=== PATIENT | male | born 1955 | race African-American/Black ===

== ENCOUNTER 2017-08-04 12:19 | Emergency (ER) | payer MEDICAID, OTHER ==
[~2017-08-04] VITALS: Ht 177.8 cm; Wt 70.0 kg
[~2017-08-04 12:19] MED LIST: APRI0.372 PO; ASPI81TA23 PO; CLON0.5T PO; FINA5TAB2 PO; HYDR-3583 PO; METH500T3 PO; PROT40TA PO; TRAM-492 PO
[2017-08-04 12:35] VITALS: BP 184/99; PULSE 66; RESP 16; TEMP 99; O2SAT 99
[2017-08-04 12:39] VITALS: O2SAT 100
[2017-08-04] MEDS ORDERED: SODIUM CHLOR 0.9% 1000 ML INJ 1,000 ML IV SCH (13:01)
[2017-08-04] MEDS ORDERED: KETOROLAC TROMETHAMINE 30 MG/ML (IVP) VIAL IVP ONE (13:15)
[2017-08-04] MEDS ORDERED: ONDANSETRON HCL 4 MG/2 ML VIAL IVP ONE (13:15)
[2017-08-04] MEDS ORDERED: MORPHINE SULFATE 4 MG/ML INJ IV PUSH ONE (13:15)
[2017-08-04] MEDS ORDERED: SODIUM CHLORIDE 0.9% FLUSH 10 ML FLUSH IV FLUSH PRN (13:15)
--- NOTE | 2017-08-04 13:20 | PD ---
HPI Chief Complaint: Flank/Kidney Pain Time Seen by Provider: 12:42 Travel History International Travel<30 days: No Contact w/Intl Traveler<30days: No Traveled to known affect area: No History of Present Illness HPI The patient is a 62-year-old male who presents to the emergency department for right flank pain. The patient was seen at [facility] several days ago diagnosed with a 4 mm kidney stone. The patient has a follow-up appointment with Dr. Ly today at 4 PM. However, his pain returned. The pain is located in the right mid back and radiates the right flank and right lower quadrant. Intermittent, sharp, with mild hematuria, symptoms are moderate to severe. The patient did receive morphine by EMS prior to arrival, however, patient continues to have pain. The patient states he was discharged home with Tucker and Flomax for his symptoms, however, they have persisted. He denies any fever, chills, or sweats. He does complain of mild nausea secondary to the pain. He denies any previous history of kidney stones. PFSH Past Medical History Anxiety: Yes Depression: Yes Diminished Hearing: No Fibromyalgia: Yes Kidney Stones: Yes Past Surgical History Other Surgery: Yes (vasectomy, knee ) Social History Alcohol Use: No (OCC) Tobacco Use: No Substance Use: No (DRINKS VODKA DAILY (denies)) Allergies-Medications (Allergen,Severity, Reaction): Coded Allergies: Tricyclic Compounds (Verified Allergy, Severe, 08/04/17) amitriptyline (Verified Allergy, Severe, 08/04/17) pyrone's disease Reported Meds & Prescriptions Reported Meds & Active Scripts Active Finasteride 5 Mg Tab 5 Mg PO DAILY Do not crush. Protonix (Pantoprazole Sodium) 40 Mg Tab 40 Mg PO DAILY Hydrocodone-Acetaminophen 10-325 mg Tab 1 Tab PO DAILY PRN Aspirin EC (Aspirin) 81 Mg Tabdr 81 Mg PO DAILY Reported Tramadol Hydrochloride (Tramadol HCl) 50 Mg Tab 200 Mg PO DAILY Methocarbamol 500 Mg Tab 500 Mg PO QID Apriso (Mesalamine) 0.375 Gm Caper 4 Tab PO DAILY Clonazepam 0.5 Mg Tab 0.5 Mg PO TID Review of Systems Except as stated in HPI: all other systems reviewed are Neg General / Constitutional: No: Fever HENT: No: Lightheadedness Cardiovascular: No: Chest Pain or Discomfort Respiratory: No: Shortness of Breath Gastrointestinal: Positive: Nausea, Abdominal Pain, No: Vomiting, Diarrhea Genitourinary: Positive: Hematuria, Flank Pain Skin: No Rash Physical Exam Narrative GENERAL: Awake, alert, pleasant 8-year-old male who appears his stated age and is in no acute respiratory distress. He does appear in mild discomfort. SKIN: Focused skin assessment warm/dry. HEAD: Atraumatic. Normocephalic. EYES: No injection or drainage. ENT: No nasal bleeding or discharge. Mucous membranes pink and moist. NECK: Trachea midline. No JVD. CARDIOVASCULAR: Regular rate and rhythm. No murmur appreciated. RESPIRATORY: No accessory muscle use. Clear to auscultation. Breath sounds equal bilaterally. GASTROINTESTINAL: Abdomen soft, non-tender, nondistended. No guarding or rigidity. Back: Right CVA tenderness. MUSCULOSKELETAL: No obvious deformities. No clubbing. No cyanosis. No edema. NEUROLOGICAL: Awake and alert. No obvious cranial nerve deficits. Motor grossly within normal limits. Normal speech. PSYCHIATRIC: Appropriate mood and affect; insight and judgment normal. Data Data Last Documented VS Vital Signs Date Time Temp Pulse Resp B/P (MAP) Pulse Ox O2 Delivery O2 Flow Rate FiO2 08/04/17 12:41 64 08/04/17 12:39 100 Room Air 08/04/17 12:35 99.0 16 184/99 (127) Orders Orders Complete Blood Count With Diff (08/04/17 13:01) Comprehensive Metabolic Panel (08/04/17 13:01) Urinalysis - C+S If Indicated (08/04/17 13:01) Ct Abd/Pel W/O Iv Contrast (08/04/17 13:01) Iv Access Insert/Monitor (08/04/17 13:01) Ecg Monitoring (08/04/17 13:01) Oximetry (08/04/17 13:01) Morphine Inj (Morphine Inj) (08/04/17 13:15) Ondansetron Inj (Zofran Inj) (08/04/17 13:15) Sodium Chlor 0.9% 1000 Ml Inj (Ns 1000 M (08/04/17 13:01) Sodium Chloride 0.9% Flush (Ns Flush) (08/04/17 13:15) Ketorolac Inj (Toradol Inj) (08/04/17 13:15) Electrocardiogram (08/04/17 12:39) Labs Laboratory Tests Test 08/04/17 13:15 08/04/17 14:05 White Blood Count 8.8 TH/MM3 Red Blood Count 5.05 MIL/MM3 Hemoglobin 12.2 GM/DL Hematocrit 37.8 % Mean Corpuscular Volume 74.9 FL Mean Corpuscular Hemoglobin 24.1 PG Mean Corpuscular Hemoglobin Concent 32.1 % Red Cell Distribution Width 14.1 % Platelet Count 196 TH/MM3 Mean Platelet Volume 8.2 FL Neutrophils (%) (Auto) 81.4 % Lymphocytes (%) (Auto) 10.0 % Monocytes (%) (Auto) 8.3 % Eosinophils (%) (Auto) 0.1 % Basophils (%) (Auto) 0.2 % Neutrophils # (Auto) 7.2 TH/MM3 Lymphocytes # (Auto) 0.9 TH/MM3 Monocytes # (Auto) 0.7 TH/MM3 Eosinophils # (Auto) 0.0 TH/MM3 Basophils # (Auto) 0.0 TH/MM3 CBC Comment DIFF FINAL Differential Comment Blood Urea Nitrogen 14 MG/DL Creatinine 1.60 MG/DL Random Glucose 106 MG/DL Total Protein 7.2 GM/DL Albumin 3.6 GM/DL Calcium Level 8.5 MG/DL Alkaline Phosphatase 63 U/L Aspartate Amino Transf (AST/SGOT) 13 U/L Alanine Aminotransferase (ALT/SGPT) 19 U/L Total Bilirubin 0.5 MG/DL Sodium Level 138 MEQ/L Potassium Level 4.6 MEQ/L Chloride Level 107 MEQ/L Carbon Dioxide Level 23.8 MEQ/L Anion Gap 7 MEQ/L Estimat Glomerular Filtration Rate 54 ML/MIN Urine Color YELLOW Urine Turbidity CLEAR Urine pH 6.0 Urine Specific [place] 1.015 Urine Protein NEG mg/dL Urine Glucose (UA) NEG mg/dL Urine Ketones 40 mg/dL Urine Occult Blood MOD Urine Nitrite NEG Urine Bilirubin NEG Urine Urobilinogen LESS THAN 2.0 MG/DL Urine Leukocyte Esterase SMALL Urine RBC 8 /hpf Urine WBC 2 /hpf Urine Squamous Epithelial Cells <1 /hpf Urine Bacteria RARE /hpf Urine Mucus FEW /lpf Microscopic Urinalysis Comment CULT NOT INDICATED MDM Medical Decision Making Medical Screen Exam Complete: Yes Emergency Medical Condition: Yes Medical Record Reviewed: Yes Interpretation(s) EKG reveals normal sinus rhythm with a rate of 64. Short [place] interval of 118 ms. No ischemic changes noted. Last Impressions Abdomen/Pelvis CT 08/04/17 1301 Signed Impressions: Service Date/Time: Friday, August 04, 2017 13:19 - CONCLUSION: 1. There is a 3 mm stone in the distal right ureter just above the ureterovesicular junction. There is mild hydronephrotic change within the right kidney. 2. 2 mm nonobstructing stone seen within the collecting system of the left kidney. Demond Rodríguez MD Laboratory Tests Test 08/04/17 13:15 08/04/17 14:05 White Blood Count 8.8 TH/MM3 Red Blood Count 5.05 MIL/MM3 Hemoglobin 12.2 GM/DL Hematocrit 37.8 % Mean Corpuscular Volume 74.9 FL Mean Corpuscular Hemoglobin 24.1 PG Mean Corpuscular Hemoglobin Concent 32.1 % Red Cell Distribution Width 14.1 % Platelet Count 196 TH/MM3 Mean Platelet Volume 8.2 FL Neutrophils (%) (Auto) 81.4 % Lymphocytes (%) (Auto) 10.0 % Monocytes (%) (Auto) 8.3 % Eosinophils (%) (Auto) 0.1 % Basophils (%) (Auto) 0.2 % Neutrophils # (Auto) 7.2 TH/MM3 Lymphocytes # (Auto) 0.9 TH/MM3 Monocytes # (Auto) 0.7 TH/MM3 Eosinophils # (Auto) 0.0 TH/MM3 Basophils # (Auto) 0.0 TH/MM3 CBC Comment DIFF FINAL Differential Comment Blood Urea Nitrogen 14 MG/DL Creatinine 1.60 MG/DL Random Glucose 106 MG/DL Total Protein 7.2 GM/DL Albumin 3.6 GM/DL Calcium Level 8.5 MG/DL Alkaline Phosphatase 63 U/L Aspartate Amino Transf (AST/SGOT) 13 U/L Alanine Aminotransferase (ALT/SGPT) 19 U/L Total Bilirubin 0.5 MG/DL Sodium Level 138 MEQ/L Potassium Level 4.6 MEQ/L Chloride Level 107 MEQ/L Carbon Dioxide Level 23.8 MEQ/L Anion Gap 7 MEQ/L Estimat Glomerular Filtration Rate 54 ML/MIN Urine Color YELLOW Urine Turbidity CLEAR Urine pH 6.0 Urine Specific [place] 1.015 Urine Protein NEG mg/dL Urine Glucose (UA) NEG mg/dL Urine Ketones 40 mg/dL Urine Occult Blood MOD Urine Nitrite NEG Urine Bilirubin NEG Urine Urobilinogen LESS THAN 2.0 MG/DL Urine Leukocyte Esterase SMALL Urine RBC 8 /hpf Urine WBC 2 /hpf Urine Squamous Epithelial Cells <1 /hpf Urine Bacteria RARE /hpf Urine Mucus FEW /lpf Microscopic Urinalysis Comment CULT NOT INDICATED Differential Diagnosis Differential diagnosis includes nephrolithiasis, hydronephrosis, pyelonephritis , UTI, infected kidney stone, acute kidney injury. Narrative Course IV was established, labs are drawn and sent, and the patient was placed on cardiac telemetry monitoring and continuous pulse oximetry monitoring. The patient received morphine, Toradol, Zofran, and IV fluids. The patient requested a repeat CT of the abdomen and pelvis to evaluate for movement of the stone. We did have a discussion regarding radiation versus benefit from CT. He was persistent, therefore, CT of the abdomen and pelvis without contrast was performed. CT reveals a 3 mm stone at the distal right ureter, near the right UV junction. UA reveals 8 RBCs. The patient was reassessed at 2:30 PM, his pain is significantly improved. The patient has an appointment today at 4 PM to see his urologist at the [facility]. The patient will be discharged with a copy of his CT results and lab results. He is advised to follow-up with his urologist as scheduled at 4 PM. Return if symptoms worsen or progress. Diagnosis Primary Impression: Nephrolithiasis Patient Instructions: General Instructions Additional Instructions: Follow-up with your urologist as scheduled today at 4 PM. Please provide the patient a copy of his CT results and lab results at discharge. Return if symptoms worsen or progress. Strain urine. Disposition: 01 DISCHARGE HOME Condition: Stable Jak Osborne MD Aug 04, 2017 13:20
[2017-08-04 13:25] LABS: AUTOMATED NEUTROPHIL # 7.2 TH/MM3 (1.8-7.7); BASOPHIL % 0.2 % (0.0-2.0); EOSINOPHIL % 0.1 % (0.0-4.0); HEMATOCRIT 37.8 % (39.0-51.0); HEMOGLOBIN 12.2 GM/DL (13.0-17.0); LYMPHOCYTE # 0.9 TH/MM3 (1.0-4.8); MEAN CELL VOLUME 74.9 FL (80.0-100.0); MEAN CORPUSCULAR HEMOGLOBIN 24.1 PG (27.0-34.0); MEAN CORPUSCULAR HGB CONC 32.1 % (32.0-36.0); MEAN PLATELET VOLUME 8.2 FL (7.0-11.0); MONO % 8.3 % (0.0-8.0); MONOCYTE # 0.7 TH/MM3 (0-0.9); NEUT % 81.4 % (16.0-70.0); PLATELET COUNT 196 TH/MM3 (150-450); RED BLOOD COUNT 5.05 MIL/MM3 (4.50-5.90); RED CELL DISTRIBUTION WIDTH 14.1 % (11.6-17.2); WHITE BLOOD COUNT 8.8 TH/MM3 (4.0-11.0)
--- NOTE | 2017-08-04 13:40 | RADRPT ---
EXAM DATE/TIME: 08/04/2017 13:19 [place] COMPARISON: No previous studies available for comparison. INDICATIONS : Right flank pain, possible kidney stone. ORAL CONTRAST: No oral contrast ingested. RADIATION DOSE: 5.08 CTDIvol (mGy) MEDICAL HISTORY : Crohn's disease. SURGICAL HISTORY : None. ENCOUNTER: Initial ACUITY: 4 - 6 days PAIN SCALE: 9/10 LOCATION: Right upper quadrant TECHNIQUE: Volumetric scanning of the abdomen and pelvis was performed. Using automated exposure control and ad justment of the mA and/or kV according to patient size, radiation dose was kept as low as reasonably achievable to obtain optimal diagnostic quality images. DICOM format image data is available electro nically for review and comparison. FINDINGS: The limited portion of the lung base visualized is clear. Right kidney/ureter: The right kidney is normal in size. There is mild hydronephrotic change. The right ureter is dilated throughout its course. It can be followed down to the bladder at which point there is a [address] above the right ureterovesicular junction. Left kidney/ureter: The left kidney is normal in size. There is a 2 mm nonobstructing stone within the collecting system. There is no hydronephrosis. The left ureter is normal in appearance throughout its course. CT source data: The visualized portion of liver is within normal limits. The spleen is unremarkable. The pancreas and adrenal glands are intact. There is no retroperitoneal adenopathy. No free air or free fluid is seen . Loops of small and large bowel appear unremarkable. The prostate is mildly enlarged. The osseous st ructures demonstrate mild degenerative changes but are otherwise intact. CONCLUSION: 1. There is a 3 mm stone in the distal right ureter just above the ureterovesicular junction. There i s mild hydronephrotic change within the right kidney. 2. 2 mm nonobstructing stone seen within the collecting system of the left kidney. Demond Rodríguez MD on August 04, 2017 at 13:29 Board Certified Radiologist. This report was verified electronically.
[2017-08-04 14:02] LABS: ALBUMIN 3.6 GM/DL (3.4-5.0); AST (GOT) 13 U/L (15-37); BICARBONATE 23.8 MEQ/L (21.0-32.0); BLOOD UREA NITROGEN 14 MG/DL (7-18); CALCIUM 8.5 MG/DL (8.5-10.1); CHLORIDE 107 MEQ/L (98-107); GLOMERULAR FILTRATION RATE 54 ML/MIN (>89); GLUCOSE,RANDOM 106 MG/DL (74-106); SODIUM (NA) 138 MEQ/L (136-145)
[2017-08-04 14:11] LABS: ALKALINE PHOSPHATASE 63 U/L (45-117); ALT (GPT) 19 U/L (12-78); TOTAL BILIRUBIN ADULT 0.5 MG/DL (0.2-1.0); TOTAL PROTEIN 7.2 GM/DL (6.4-8.2)
[2017-08-04 14:50] LABS: BACTERIA, URINE RARE /hpf; BILIRUBIN, URINE NEG (NEG); BLOOD, URINE MOD (NEG); GLUCOSE,URINE NEG (NEG); KETONE, URINE 40 mg/dL (NEG); MUCUS URINE FEW /lpf (OCC); NITRITE,URINE NEG (NEG); SQUAMOUS EPITHELIAL CELL URINE <1 /hpf (0-5); URINE COLOR YELLOW (YELLW/STRAW); URINE LEUKOCYTE ESTERASE SMALL (NEG)
--- NOTE | 2017-08-05 21:48 | EKG ---
Date Performed: 08/04/2017 Time Performed: 12:39:07 PTAGE: 62 years EKG: Sinus rhythm WITH SHORT LA INTERVAL BORDERLINE ECG PREVIOUS TRACING : 03/27/2014 12.31 No significant change from previous tracing noted. DOCTOR: Shaggy Novak Interpretating Date/Time 08/05/2017 21:47:10
== END 2017-08-04 15:38 | disposition home or self-care (01) ==
LOC: NEPD 12:19
DX: N20.2 Calculus of kidney with calculus of ureter (principal); R94.31 Abnormal electrocardiogram [ECG] [EKG]; M79.7 Fibromyalgia; F32.9 Major depressive disorder, single episode, unspecified; Z87.442 Personal history of urinary calculi
CPT/HCPCS: 74176; 80053; 81001; 85025; 93005; 96361; 96374; 96375; 99285; J1885; J2270; J2405; J7030